=== PATIENT | male | born 1985 | race Caucasian/White ===

== ENCOUNTER 2020-06-20 20:00 | Outpatient (CLI) | payer MEDICAID, SELFPAY | END 2020-06-20 20:01 | disposition home or self-care (01) | LOC: SLEEP 06-21 09:18 | PROVIDERS: Visit Provider Family Medicine | DX: G47.33 Obstructive sleep apnea (adult) (pediatric) (principal) | CPT/HCPCS: 95810 ==

== ENCOUNTER 2020-06-21 20:20 | Emergency (ER) | payer MEDICAID, SELFPAY ==
[2020-06-21] VITALS (12 sets, daily range): BP systolic 99–133; BP diastolic 58–87; PULSE 76–188; RESP 17–30; TEMP 37.1; O2SAT 97–98; BMI 40.6
--- NOTE | 2020-06-21 20:51 | ECG_ITS ---
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
--- NOTE | 2020-06-21 20:51 | XRR_ITS ---
PROCEDURE INFORMATION: Exam: XR Chest Exam date and time: 06/21/2020 8:54 PM Age: 35 years old Clinical indication: Chest pain; Additional info: Cp TECHNIQUE: Imaging protocol: XR of the chest. Views: 1 view. COMPARISON: [facility] [place] Ribs LEFT 12/12/2013 11:08 AM FINDINGS: Lungs: Unremarkable. No consolidation. Pleural spaces: Unremarkable. No pleural effusion. No pneumothorax. Heart/Mediastinum: Unremarkable. No cardiomegaly. Bones/joints: Unremarkable. XR/XR chest 1V portable [id number] IMPRESSION: No acute findings.
[2020-06-21] MEDS: sodium chloride 0.9% 1,000 ML 999 ML IV (20:58)
[2020-06-21 21:00] LABS: Basophils # 0.1 10^3/uL (0.0-0.1); Basophils % 0.5 %; Eosinophils # 0.5 10^3/uL (0.0-0.8); Eosinophils % 3.4 %; Hematocrit 44.7 % (42.0-52.0); Lymphocytes # 6.2 10^3/uL (0.8-4.8); Lymphocytes % 43.2 %; Mean Corpuscular HGB Conc 33.6 g/dL (30.0-36.0); Mean Corpuscular Hemoglobin 29.9 pg (28.0-34.0); Mean Corpuscular Volume 89.2 fL (80-94); Mean Platelet Volume 11.6 fL (7.4-10.4); Monocytes # 0.9 10^3/uL (0.2-0.9); Monocytes % 6.6 %; Neutrophils # 6.45 10^3/uL (1.8-7.7); Neutrophils % 45.5 %; Nucleated Red Blood Cells % 0 %; Platelet Count 263 10^3/cmm (130-400); Red Blood Count 5.01 10^6/uL (4.1-5.3); Red Cell Distribution Width 12.9 % (12.1-15.1); White Blood Count 14.2 10^3/uL (4.0-10.0)
[2020-06-21 21:12] LABS: Troponin(5th) Baseline 8 ng/L (0-15)
[2020-06-21 21:21] LABS: Alanine Aminotransferase 31 U/L (0-41); Albumin Level 4.1 g/dL (3.5-5.2); Alkaline Phosphatase 64 IU/L (40-130); Anion Gap 14.3 (5-19); Aspartate Amino Transferase 21 U/L (0-40); Blood Urea Nitrogen 13 mg/dL (6-20); Calcium 8.8 mg/dL (8.5-10.5); Carbon Dioxide 24 mmol/L (22-29); Chloride 103 mmol/L (98-107); Globulin 2.3 g/dL (1.3-4.6); Glomerular Filtration Rate 109.4 mL/min (90-130); Glucose 159 mg/dL (65-115); Magnesium 1.8 mg/dL (1.7-2.3); NT Pro B Type Natriuretic Pept 20 pg/mL (0-125); Osmolality Calculated 287 mOsm/kg (285-295); Potassium 4.3 mmol/L (3.5-5.1); Sodium 137 mmol/L (136-145); Total Bilirubin 0.3 mg/dL (0.15-1.2); Total Protein 6.4 g/dL (6.6-8.7)
[2020-06-21 21:23] LABS: Slide Review Slide Review Perform
[2020-06-21 21:43] LABS: D Dimer <= 0.27 ug/mIFEU (0-0.59)
--- NOTE | 2020-06-21 22:51 | ECG_ITS ---
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
[2020-06-21 23:23] LABS: Troponin 5 2HR 12.82 ng/L (0-15); Troponin 5 2HR Delta 4.82 ABS# (0-10)
--- NOTE | 2020-06-21 23:54 | W.ED.CHESTPA ---
HPI - Chest Pain General: Chief Complaint: Chest Pain Stated Complaint: irregular heart rate,sob Time Seen by Provider: 06/21/20 20:51 History of Present Illness: HPI narrative: 35-year-old male complains of chest pressure, and erratic heartbeat, and some shortness of breath. This happened at home, and did not improve on its own. He notes feeling like this a couple of times in the past, may be 2 to 3 months ago with his last episode. Until tonight, the episodes have always resolved on their own after a very short period of time. This time symptoms lingered so he came in for evaluation. He has no prior history of coronary or other heart disease. MD complaint: chest heaviness Onset (ago): hour(s) Timing of current episode: constant Prior episodes: Yes Onset: during rest Pain location: substernal Quality: heaviness Relieving factors: nothing Exacerbating factors: exertion Associated symptoms: Reports diaphoresis, dyspnea, leg edema and palpitations; Deny abdominal pain, fever(s) or nausea Review of Systems Const: Reports: diaphoresis; Denies: fever(s) Eyes: Denies: change in vision ENMT: Denies: throat pain Card: Reports: chest pain, palpitations and irregular heart rhythm Resp: Reports: dyspnea GI: Denies: abdominal pain or nausea : Denies: flank pain or dysuria Neuro: Denies: headache(s) or weakness in extremities PFSH ED PFSH: Social History Smoking and tobacco status: current every day smoker Physical Exam Const: GENERAL APPEARANCE: well developed ORIENTATION/CONSCIOUSNESS: Yes oriented to person, Yes oriented to place and Yes oriented to time HENMT: COMMON NORMALS: normocephalic, external ears normal and Normal external nose present HEAD & SCALP: normocephalic FACE & SINUS: normal facial exam NOSE: Normal external nose present and No nasal discharge present EXTERNAL EAR: Yes external ears normal THROAT: posterior oropharynx normal Eye: COMMON NORMALS: Equal, round and reactive pupils present, EOMs intact bilaterally and conjunctivae normal EYELID: eyelids normal CONJUNCTIVA: Yes conjunctivae normal PUPIL: Yes Equal, round and reactive pupils present Neck/C-Spine: GENERAL: No tracheal deviation Chest: COMMONS NORMALS: normal inspection of the chest CHEST: No tenderness Resp: COMMON NORMALS: clear to auscultation bilaterally EFFORT & INSPECTION: No tachypneic, No respiratory distress, No retractions, No uses accessory muscles and No tracheal deviation AUSCULTATION: clear to auscultation bilaterally, no rhonchi, no wheezes and lung sounds not diminished Cardio: COMMON NORMALS: regular rhythm RATE: tachycardic RHYTHM: regular rhythm HEART SOUNDS: no murmurs PERIPHERAL PULSES: radial pulses present GI: INSPECTION: No abdominal distension AUSCULTATION: No Hyperactive bowel sounds present and No Hypoactive bowel sounds present PALPATION: No Guarding due to palpation present (GI) and No Rigid due to palpation PERCUSSION: no dullness to percussion and no tympanic to percussion Neuro: SENSORIUM/ORIENTATION: Yes oriented to person, Yes oriented to place and Yes oriented to time Psych: COMMON NORMALS: mental status grossly normal Skin: COMMON NORMALS: no rashes or lesions noted GENERAL SKIN EXAM: no rashes or lesions noted Course Vital Signs: Vital signs: Vital Signs Temperature 98.7 F 06/21/20 20:23 Pulse Rate 76 06/21/20 23:52 Respiratory Rate 20 H 06/21/20 23:52 Blood Pressure 119/85 06/21/20 23:52 Pulse Oximetry 98 06/21/20 23:52 MDM - Chest Pain MDM Narrative: Medical decision making narrative: 35-year-old male with chest discomfort, shortness of breath. He presents with a heart rate of 1 80-1 90. EKG shows classic supraventricular tachycardia. There were no ST changes on the EKG. Poca is normal. Chest x-ray is negative. Laboratory shows an elevated white blood cell count of 14. Glucose was 159. The patient was given 20 mg Cardizem bolus with resolution of SVT, back to sinus rhythm with a rate below 100. His blood pressure remained normal. He was asymptomatic on discharge. His troponin did not significantly elevate. With resolution of his symptoms, he will be discharged on metoprolol. He was counseled on the use, and it is his choice with only one episode whether not to use it. He will follow up with his PCP. Lab Data: Labs: Lab Results 06/21/20 06/21/20 06/21/20 Range/Units 20:42 20:42 20:42 WBC 14.2 H (4.0-10.0) 10^3/ uL RBC 5.01 (4.1-5.3) 10^6/u L Hgb 15.0 (11.7-16.6) g/dL Hct 44.7 (42.0-52.0) % MCV 89.2 (80-94) fL MCH 29.9 (28.0-34.0) pg MCHC 33.6 (30.0-36.0) g/dL RDW 12.9 (12.1-15.1) % Plt Count 263 (130-400) 10^3/c mm MPV 11.6 H (7.4-10.4) fL Neut % (Auto) 45.5 % Lymph % (Auto) 43.2 % Gregg % (Auto) 6.6 % Eos % (Auto) 3.4 % Baso % (Auto) 0.5 % Neut # (Auto) 6.45 (1.8-7.7) 10^3/u L Lymph # (Auto) 6.2 H (0.8-4.8) 10^3/u L Gregg # (Auto) 0.9 (0.2-0.9) 10^3/u L Eos # (Auto) 0.5 (0.0-0.8) 10^3/u L Baso # (Auto) 0.1 (0.0-0.1) 10^3/u L Nucleated RBC % (a uto) 0 % Nucleated RBCs # 0.0 /100WBC D-Dimer (0-0.59) ug/mIFE U Sodium 137 (136-145) mmol/L Potassium 4.3 (3.5-5.1) mmol/L Chloride 103 (98-107) mmol/L Carbon Dioxide 24 (22-29) mmol/L Anion Gap 14.3 (5-19) BUN 13 (6-20) mg/dL Creatinine 0.8 (0.7-1.2) mg/dL GFR Calculation 109.4 (90-130) mL/min Glucose 159 H (65-115) mg/dL Calculated Osmolal ity 287 (285-295) mOsm/k g Calcium 8.8 (8.5-10.5) mg/dL Magnesium 1.8 (1.7-2.3) mg/dL Total Bilirubin 0.3 (0.15-1.2) mg/dL AST 21 (0-40) U/L ALT 31 (0-41) U/L Alkaline Phosphata se 64 (40-130) IU/L Troponin T Baselin e 8 (0-15) ng/L Troponin T 120 Min ak chin (0-15) ng/L Delta Troponin T (0-10) ABS# NT-Pro-B Natriuret Pep 20 (0-125) pg/mL Total Protein 6.4 L (6.6-8.7) g/dL Albumin 4.1 (3.5-5.2) g/dL Globulin 2.3 (1.3-4.6) g/dL 06/21/20 06/21/20 Range/Units 21:17 22:55 WBC (4.0-10.0) 10^3/ uL RBC (4.1-5.3) 10^6/u L Hgb (11.7-16.6) g/dL Hct (42.0-52.0) % MCV (80-94) fL MCH (28.0-34.0) pg MCHC (30.0-36.0) g/dL RDW (12.1-15.1) % Plt Count (130-400) 10^3/c mm MPV (7.4-10.4) fL Neut % (Auto) % Lymph % (Auto) % Gregg % (Auto) % Eos % (Auto) % Baso % (Auto) % Neut # (Auto) (1.8-7.7) 10^3/u L Lymph # (Auto) (0.8-4.8) 10^3/u L Gregg # (Auto) (0.2-0.9) 10^3/u L Eos # (Auto) (0.0-0.8) 10^3/u L Baso # (Auto) (0.0-0.1) 10^3/u L Nucleated RBC % (a uto) % Nucleated RBCs # /100WBC D-Dimer <= 0.27 (0-0.59) ug/mIFE U Sodium (136-145) mmol/L Potassium (3.5-5.1) mmol/L Chloride (98-107) mmol/L Carbon Dioxide (22-29) mmol/L Anion Gap (5-19) BUN (6-20) mg/dL Creatinine (0.7-1.2) mg/dL GFR Calculation (90-130) mL/min Glucose (65-115) mg/dL Calculated Osmolal ity (285-295) mOsm/k g Calcium (8.5-10.5) mg/dL Magnesium (1.7-2.3) mg/dL Total Bilirubin (0.15-1.2) mg/dL AST (0-40) U/L ALT (0-41) U/L Alkaline Phosphata se (40-130) IU/L Troponin T Baselin e (0-15) ng/L Troponin T 120 Min ak chin 12.82 (0-15) ng/L Delta Troponin T 4.82 (0-10) ABS# NT-Pro-B Natriuret Pep (0-125) pg/mL Total Protein (6.6-8.7) g/dL Albumin (3.5-5.2) g/dL Globulin (1.3-4.6) g/dL Critical Care Time Critical Care Time: Critical Care Time: Yes Total Critical Care Time: 30 Attestation: This case had a high probability of a clinically significant, sudden, or life threatening deterioration of this patient's condition which required my full and direct attention, intervention and personal management. Discharge Plan Discharge Patient Disposition: Home Clinical Impression: SVT (supraventricular tachycardia) Condition: Stable Prescriptions: New metoprolol tartrate 25 mg tablet 25 mg PO BID Qty: 60 RF: 0 No Action ibuprofen 200 mg Tablet 200 - 400 mg PO Q6H PRN (Reason: Pain) RF: 0 Claritin 10 mg Tablet 10 mg PO DAILY RF: 0 Centrum Complete 18-400 mg-mcg Tablet 1 tab PO DAILY RF: 0 Discharge Orders: Discharge ED (Routine); Ordered 06/21/20 Ordered By: Derick Robb Referrals: Colton Cornejo MD [Physician] - 4-7 days Activity Restrictions/Additional Instructions: Return for return of chest pressure, shortness of breath, nausea, vomiting, syncope or passing out, any other concerning symptoms. 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
== END 2020-06-21 23:53 | disposition home or self-care (01) ==
PROVIDERS: Emergency Provider Emergency Medicine
DX: I47.1 Supraventricular tachycardia (principal); F17.210 Nicotine dependence, cigarettes, uncomplicated
CPT/HCPCS: 71045; 80053; 83735; 83880; 84484; 85025; 85378; 93005; 96361; 96374; 99284; J3490; J7030

== ENCOUNTER 2020-09-03 08:37 | Outpatient (CLI) | payer MEDICAID, SELFPAY ==
--- NOTE | 2020-09-03 08:41 | USCV_ITS ---
Tommy Dumont Age: 35 Gender: M : 1985 Exam Date: 09/03/2020 09:22 Ordering Phys: Colton Cornejo MD Technologist: Alaina Morales [place] [facility] [place]: SVT BP: / HR: 75 Rhythm: Sinus Technical Quality: Adequate MEASUREMENTS (Male / Female) Normal Values 2D ECHO LV Diastolic Diameter PLAX 5.1 cm 4.2 - 5.9 / 3.9 - 5.3 cm LV Systolic Diameter PLAX 2.3 cm LV Chamber Size 3.7 cm IVS Diastolic Thickness 1.2 cm 0.6 - 1.0 / 0.6 - 0.9 cm IVS Systolic Thickness 1.9 cm LVPW Diastolic Thickness 1.5 cm 0.6 - 1.0 / 0.6 - 0.9 cm LVPW Systolic Thickness 2.0 cm RV Chamber Size 2.8 cm LVOT Diameter 2.1 cm LV Ejection Fraction 2D Teich 85.3 % LV Ejection Fraction MOD 2C 39.4 % LV Ejection Fraction 2C AL 40.0 % LA Diameter 3.3 cm LA Width 3.5 cm LA Height 4.3 cm RA Width 4.0 cm RA Height 4.5 cm Aorta at Sinotubular Diameter 3.9 cm M-MODE LV Diastolic Diameter MM 4.9 cm 4.2 - 5.9 / 3.9 - 5.3 cm LV Systolic Diameter MM 2.6 cm LV Ejection Fraction MM Teich 77.7 % IVS Diastolic Thickness MM 1.2 cm 0.6 - 1.0 / 0.6 - 0.9 cm IVS Systolic Thickness MM 1.4 cm LVPW Diastolic Thickness MM 1.1 cm 0.6 - 1.0 / 0.6 - 0.9 cm LVPW Systolic Thickness MM 2.0 cm Aortic Annulus Diameter 4.1 cm LA Ao Ratio MM 0.9 MV E Point Septal Separation 0.3 cm DOPPLER AV Peak Velocity 127.0 cm/s LVOT Peak Velocity 95.0 cm/s AV Area Cont Eq vti 2.9 cm squared AV Area Cont Eq pk 2.5 cm squared MV Area PHT 4.0 cm squared Mitral E to A Ratio 1.1 MV E' Velocity 54.0 cm/s Mitral E to MV E' Ratio 8.0 Mitral E to LV E' Lateral Ratio 7.3 Mitral E to LV E' Septal Ratio 8.9 TR Peak Velocity 167.8 cm/s TR Peak Gradient 11.3 mmHg TR Mean Velocity 93.6 cm/s TR Mean Gradient 4.3 mmHg TR Velocity Time Integral 36.7 cm TV Peak E Velocity 62.0 cm/s Right Atrial Pressure 3.0 mmHg Pulmonary Artery Systolic Pressu 14.3 mmHg PV Peak Velocity 63.0 cm/s RV Acceleration Time 0.1 s RV Ejection Time 0.3 s RV AcT/ET 0.3 FINDINGS Left Ventricle Normal left ventricular size, systolic function and wall thickness, with no regional wall motion abnormalities. Left ventricular ejection fraction is estimated at 65 %. Normal diastolic function. Right Ventricle Normal right ventricular size and systolic function. Right ventricular systolic pressure 14.3 mmHg. Right Atrium Normal right atrial size. Right atrial pressure estimated at 3 mmHg. Left Atrium Normal left atrial size. Mitral Valve Structurally normal mitral valve. No mitral valve stenosis. No mitral valve regurgitation. Aortic Valve Structurally normal trileaflet aortic valve. No aortic valve stenosis. No aortic valve regurgitation. Tricuspid Valve Structurally normal tricuspid valve. Trace tricuspid valve regurgitation. Pulmonic Valve No pulmonary valve stenosis. No significant pulmonary valve regurgitation. Pericardium No pericardial effusion. Aorta Normal size aortic root and proximal ascending aorta. Normal- sized inferior vena cava with normal respiratory variation. CONCLUSIONS 1. Normal left ventricular size, systolic function and wall thickness, with no regional wall motion abnormalities. Left ventricular ejection fraction is estimated at 65 %. Normal diastolic function. 2. No significant valvular abnormality. 3. Normal pulmonary artery pressure. 4. No prior similar studies to compare. Laura Springer MD (Electronically Signed) Final Date: 03 September 2020 15:34 S
== END 2020-09-03 08:38 | disposition home or self-care (01) ==
LOC: US 08:38
PROVIDERS: PCP Family Medicine; Visit Provider Family Medicine
DX: I47.1 Supraventricular tachycardia (principal)
CPT/HCPCS: 93306

== ENCOUNTER → 2021-01-15 11:48 | Outpatient (BNVA) | payer MEDICAID, SELFPAY | PROVIDERS: PCP Family Medicine; Visit Provider Otolaryngology | DX: Z20.822 Contact with and (suspected) exposure to COVID-19 (principal); Z11.52 Encounter for screening for COVID-19 | CPT/HCPCS: 87635 ==

== ENCOUNTER 2021-01-22 07:39 | Day surgery (SDC) | payer MEDICAID, SELFPAY ==
[2021-01-21 13:00] VITALS: BMI 41.0
[2021-01-22] VITALS (27 sets, daily range): BP systolic 104–195; BP diastolic 63–114; PULSE 80–98; RESP 18–22; TEMP 36.3–36.6; O2SAT 83–98
--- NOTE | 2021-01-22 08:07 | W.PM.OPSUD ---
Surgery/Procedure H&P Update DATE OF PROCEDURE: January 22, 2021 DATE H&P PERFORMED: 01/13/21 H&P UPDATE INFORMATION: I have reviewed H&P completed within last 30 days, I have examined patient prior to procedure and No changes to prior documentation PREOP DIAGNOSIS: Obstructive sleep apnea/deviated nasal septum/tonsillar hypertrophy PLANNED PROCEDURE: Operation Date: 01/22/21 09:15 Proposed Procedures p Septoplasty w/ Turinate Reduction [id number] J34.3 J34.2(Not Applicable) - Clifford Cain MD
[2021-01-22] MEDS: sodium chloride 0.9% 1,000 ML 30 ML IV (08:17)
--- NOTE | 2021-01-22 08:22 | ANES.PREANE2 ---
Pre-Anesthetic Assessment Pre-Anesthetic Assessment: Height/Weight: Height 1.73 m Weight 122.47 kg Temp Pulse Resp BP Pulse Ox 97.9 F 87 18 158/114 98 01/22/21 07:55 01/22/21 07:55 01/22/21 07:55 01/22/21 07:55 01/22/21 07:55 Preop Diagnosis: Obstructive sleep apnea/deviated nasal septum/tonsillar hypertrophy Proposed Procedure: Operation Date: 01/22/21 09:15 Proposed Procedures p Septoplasty w/ Turinate Reduction [id number] J34.3 J34.2(Not Applicable) - Clifford Cain MD Was Beta Jose De Jesus taken within 24 hours: Yes Was Clonidine taken within 24 hours: N/A Last intake: Intake Last Liquid Date 01/21/21 Last Liquid Time 23:30 Last Solid Date 01/21/21 Last Solid Time 19:30 Social: Social History: Tobacco and No alcohol Exam: Pre-Anes Outpt Exam: alert, oriented x 3, clear to auscultation bilaterally and regular rate & rhythm Airway: Submandibular: WNL Cervical ROM: WNL MP: 2 Dentition: Full Pulmonary: Pulmonary: COPD, Cough ( sinus drainage ) and Sleep apnea CV/HEM: CV/HEM: Arrythmia (SVT) and HTN Metabolic: Metabolic: Morbid obesity Anesthetic Plan: ASA status: 3 Anesthesia: General Risk of > 500 ml blood loss (7ml/kg in children): No Meds/Allergies Current Medications: Current Medications Generic Name Dose Route Start Last Admin Trade Name Freq PRN Reason Stop Dose Admin Sodium Chloride 1,000 mls @ 30 ml s/hr 01/22/21 07:45 01/22/21 08:17 Sodium Chloride 0.9% IV 01/23/21 07:44 30 mls/hr .Q24H MARGARITA Administration PFSH Anesthesia PFSH: Medical History Hypertension SVT (supraventricular tachycardia) Tobacco abuse Family History Other Hypertension Social History Quit status (tobacco): not considering quitting Second hand smoke exposure: Yes Smoking risk assessment/counseling performed?: No Alcohol intake: current Alcohol intake frequency: few times a week Desire information about alcohol rehabilitation?: No Counseling given: No Data Anesthesia Cardiac Studies: Echocardiogram 09/03/20
[2021-01-22] MEDS: diphenhydrAMINE 50 mg/mL SDV 1mL 25 MG IVP (08:39)
[2021-01-22] MEDS: ceFAZolin 3,000 MG in sodium chloride 0.9% (100 ml) 100 ML 200 MG IV (09:35)
[2021-01-22] MEDS: oxymetazoline 0.05% Nasal Spray 15 mL 1 SPRAY NOSTRIL-B (09:54)
--- NOTE | 2021-01-22 10:38 | SUR.OPER ---
2% lidocaine with epinephrine1:100,000 10.2ml injected in nose per Dr. Cain.
--- NOTE | 2021-01-22 12:00 | PM.OP ---
Operative Report Date of procedure: January 22, 2021 Pre-op Diagnosis: Obstructive sleep apnea/deviated nasal septum/tonsillar hypertrophy Post-op diagnosis: same Post-op Findings: Right tonsil larger than left with significant redundant oropharyngeal tissue. Low hanging very thick soft palate and uvula. Deviated nasal septum to the left side. All of these much improved after the procedure. Airway orally much improved. Procedure Done: Uvulopalatopharyngoplasty with tonsillectomy and septoplasty with turbinate outfracturing. Implants: Two silicone septal splints and 2 Telfa packs intranasally Specimens removed/disposition: Tonsils and soft palate and uvula sent to pathology. Pathology: Tonsils and soft palate and uvula Surgeon: Clifford Cain Anesthesia: General and Local Estimated blood loss (mL): 75 Complications: No complications encountered. Findings: Patient has nasal obstruction due to a significant deviated septum to the left side. The patient has residual tonsils right side greater than left with massively redundant oropharyngeal tissues laterally and low hanging soft palate with extreme thickness and edema of uvula. Condition: stable Disposition: PACU Brief History: 35-year-old male patient who is obese with a BMI of 41.1 and carrying 270 pounds on a 5 foot 8 inch frame. He has obstructive sleep apnea. He is found to have a deviated nasal septum with turbinate hypertrophy which prevents him from using CPAP appropriately. He also has excessive redundant oropharyngeal tissues. He has large tonsils thick palate and hypertrophic uvula. All of these things are contributing to his problem. He understands that this surgery may only allow him to improve the capability to utilize CPAP. It is very likely if he continues to be obese that he will still need CPAP or BiPAP long-term. The procedure its risks and complications have been explained in the office setting. These risks include bleeding delayed bleeding infection sore throat voice change nasal regurgitation need for additional treatment ear pain neck pain throat pain voice change obvious need for CPAP or BiPAP long-term and more serious risks associated with anesthesia. Additionally there is risks associated with septal hematoma abscess or perforation and change in sense of smell or nasal dryness. With all these things understood informed consent was granted and witnessed. Procedure: Description of procedure: The patient was placed on the operating table in the supine position. Adequate general endotracheal tube anesthesia was obtained. A timeout was accomplished identifying the patient date of plan procedure allergies fire risk and medications given. With all in agreement the procedure continued. The patient was given Ancef IV for prophylaxis and Decadron to help with postoperative edema. Initially the patient was positioned for the nasal procedure. His nose was packed with cottonoids soaked in 12-hour Afrin. After several minutes these packs were removed and the septum and inferior turbinates were infiltrated with local. Then the nasal hairs were trimmed with scissors and the Afrin packs were reapplied to the nose. The patient was then repositioned for the tonsillectomy and UPPP. The table was rotated 90 degrees. The eyes were covered and his head was dropped 15 degrees to the horizontal. The patient then had a Arian Matty mouthgag inserted over the endotracheal tube and tongue ensuring that the upper incisors were in the guard. This was then opened and suspended from a rolled towel placed on his chest. Then the superior aspect of the left tonsil was clamped with a tenaculum and retracted towards the midline. The Coblator on ablation and coagulation modes were then used to dissect the left tonsil from its bed. Then after that was accomplished the soft palate and uvula were resected in a similar fashion and then the right side tonsil was resected. Hemostasis was obtained with the Coblator on coagulation mode throughout the procedure. The right tonsil was found to be much larger than the left. The soft palate was between one half and three quarters of an inch thick. After all bleeding was controlled suturing was accomplished with 2-0 chromic suture bringing the anterior and posterior pillars together superiorly and then the anterior and posterior mucosa of the soft palate together. This created a horseshoe shape opening. The inferior aspect of the tonsillectomy sites were left open. Once this was accomplished and there was no sign of bleeding the mouthgag was released and removed. The head was returned to the upright position. And then the table was released and returned to its original position and placed into a semirecumbent position. With the nose now in the appropriate position for the septoplasty the Afrin packs are removed. A [place] elevator was used to outfracture the inferior and middle turbinates. A left hemitransfixion incision was created with a 15 blade carrying it down to the septal cartilage. A mucoperichondrial periosteal flap was then raised on the left side in all directions. What was found was that the cartilage had been fractured previously and that the cartilage was overriding the maxillary crest to the left side by about 2 to 3 mm. A half round knife was used to cut through the cartilage anterior to posterior and then release it from its attachment to the bony septum inferiorly. Then the quadrangular cartilage was disarticulated from the perpendicular plate of the ethmoid and vomer. The deviated posterior bony septum was then resected in a piecemeal fashion with Nolan forceps. With this accomplished the septum now rested in a good straight midline position. The left hemitransfixion incision was closed with interrupted 4-0 chromic suture. 2 septal splints were cut to size and 1 applied each side of the septum. These were sutured in a through and through fashion with 3-0 Prolene. 2 Telfa packs were then cut to size coated with Neosporin and 1 was applied to each side of the nose. With these in place there was no sign of active bleeding from the nose or the oropharynx. An NG tube was placed the stomach and decompressed with very little findings. The patient was then returned to the anesthesiologist for wake-up and extubation. Patient tolerated the procedure well and arrived in recovery in somewhat of a combative condition. He had a little bit of ooze from the elevation of his blood pressure from being upset and coughing.
--- NOTE | 2021-01-22 12:18 | PM.OP ---
Operative Report Date of procedure: January 22, 2021 Pre-op Diagnosis: Obstructive sleep apnea/deviated nasal septum/tonsillar hypertrophy
--- NOTE | 2021-01-22 12:36 | PM.MISC ---
Miscellaneous Note Purpose of Documentation: PACU Note Note: Patient extubated in OR on 100% FiO2. Initially no signs of obstruction. After moving to [facility] airway obstruction evident. Nasal trumpet placed in mouth gently. Sats in low 90s. Transitioned to PACU on 10 LPM simple mask. On arriving to PACU patient became very combative, spitting blood, very uncooperative. Sats in low 80s. Patient sat up on his own to his preference. Initially patient refused O2 via simple mask. Sats 78-82 for 1 minute while patient coughed and spit blood. Patient accepted O2 via blow by simple mask and sats improved to 88. Once airway irritation improved sats improved to 91% on 10 LPM simple mask. BP initially high on left lower extremity BP cuff reading. BP cuff moved to RUE and reading of 143/81 taken with a pulse of 88. Patient became cooperative. Discussed with RN plan. Will call respiratory to start incentive spirometer in effort to improve suspected atelectasis.
--- NOTE | 2021-01-22 12:41 | PC.NURSE ---
When pt got to me in PACU his O2 was in the low 80s, he had an oral airway, he was combative and trying to get out of bed. Anesthesia remained at bedsite along with OR nurse and an OPS came to aid in keeping the pt safe, getting suction, longer oxygen tubing and more pulse ox readers. After sometime BP and temp were obtained, pt O2 came up to low 90s.
--- NOTE | 2021-01-22 13:19 | ANE.PACU2 ---
Inpatient post-anesthesia follow up: Airway intact: Yes Vital signs: Temperature 97.4 F Pulse Rate 92 Respiratory Rate 20 Blood Pressure 130/86 Pulse Oximetry 92 Oxygen Delivery Me thod Simple Mask Oxygen Flow Rate 5 Fraction of Inspir ed Oxygen Hydration adequate: Yes Nausea and vomiting: No Pain level: 3 Mental status: Baseline
[2021-01-22] MEDS: FUROsemide 10 mg/mL SDV 2mL IVP ×2 (13:34→13:53)
[2021-01-22] MEDS: oxyCODONE-APAP 10-325 mg Tablet 2 TAB PO (15:31)
== END 2021-01-22 15:39 | disposition home or self-care (01) ==
PROVIDERS: PCP Family Medicine; Visit Provider Otolaryngology
PROC: (CPT 30520; principal; 2021-01-22 09:15)
PROC: (CPT 30130; 2021-01-22 09:15)
DX: G47.33 Obstructive sleep apnea (adult) (pediatric) (principal); J34.3 Hypertrophy of nasal turbinates; J34.2 Deviated nasal septum; G47.32 High altitude periodic breathing; R09.81 Nasal congestion; J35.1 Hypertrophy of tonsils; K13.79 Other lesions of oral mucosa; I10 Essential (primary) hypertension; F17.200 Nicotine dependence, unspecified, uncomplicated
CPT/HCPCS: 30130; 30520; 42145; 88304; J0330; J0690; J1100; J1200; J1940; J2001; J2250; J2405; J2704; J3010; J3490; J7030; J7611